=== PATIENT | male | born 2000 | race Caucasian/White ===

== ENCOUNTER 2023-12-18 02:02 | Observation (INO) | payer OTHER ==
[~2023-12-18] VITALS: Ht 205.7 cm; Wt 159.2 kg
[2023-12-18] MEDS ORDERED: ISOVUE-370 76% 100ML VIAL As Ordered ONE (02:15)
[2023-12-18 02:27] LABS: VENOUS BASE EXCESS -1.5 (-2.0-2.0); VENOUS HCO3 24.1 MMOL/L (23.0-27.0); VENOUS O2 SATURATION 62.8 % (60.0-80.0); VENOUS PARTIAL PRESSURE CO2 43.6 mmHg (38.0-50.0); VENOUS PARTIAL PRESSURE O2 32.1 mmHg (30.0-50.0); VENOUS STANDARD HCO3 22.3 MMOL/L; VENOUS TOTAL CO2 25.4 MMOL/L (24.0-28.0)
[2023-12-18 02:31] LABS: BASO % 0.4 % (0.0-1.0); EOS # 0.1 10^3/uL (0.0-0.5); EOS % 0.9 % (0.0-3.0); LYMPH % 29.3 % (24.0-44.0); MEAN CORPUSCULAR HEMOGLOBIN 29.8 pg (27.0-33.0); MEAN CORPUSCULAR VOLUME 87.5 fl (80.0-96.0); MONO # 0.6 10^3/uL (0.0-0.8); MONO % 5.5 % (2.0-8.0); NEUTROPHILS # 6.5 10^3/uL (1.5-8.5); NEUTROPHILS % 63.1 % (36.0-66.0); PLATELET COUNT, AUTOMATED 273 10^3/uL (150-450); RED BLOOD COUNT 5.37 10^6/uL (4.30-6.10); WHITE BLOOD COUNT 10.3 10^3/uL (4.0-10.0)
[2023-12-18] MEDS: fentaNYL 100 MCG/2 ML INJECTION IV ONE (02:37)
[2023-12-18] MEDS: ONDANSETRON 4MG 2ML VIAL IV ONE (02:37)
[2023-12-18] MEDS: NS 1,000 ML IV ONE (02:40)
[2023-12-18 02:45] LABS: INR 0.97; PROTHROMBIN TIME 12.6 SECONDS (12.5-14.5)
[2023-12-18 02:56] LABS: ETHYL ALCOHOL (ETHANOL) < 0.003 % (0.000-0.010); LIPASE 35 U/L (12-53)
[2023-12-18 02:57] LABS: AMYLASE 176 U/L (30-118)
[2023-12-18 02:58] LABS: ALBUMIN 3.7 G/DL (3.2-5.2); ALKALINE PHOSPHATASE 76 U/L (46-116); ALT/SGPT 130 U/L (7.0-40); AST/SGOT 92 U/L (<34); BILIRUBIN,DIRECT 0.2 MG/DL (<0.4); BILIRUBIN,TOTAL 0.5 MG/DL (0.3-1.2); BLOOD UREA NITROGEN 15 MG/DL (9-23); CALCIUM LEVEL 8.7 MG/DL (8.5-10.1); CARBON DIOXIDE LEVEL 25 MMOL/L (20-31); CHLORIDE LEVEL 104 MMOL/L (98-107); CK-MB VALUE MASS 2.8 NG/ML (<3.6); CPK CREATINE PHOSPHOKINASE 482 U/L (46-171); CREATININE FOR GFR 1.08 MG/DL (0.70-1.30); GLOMERULAR FILTRATION RATE > 60.0 (>60); GLUCOSE, FASTING 109 MG/DL (60-100); MB/CK RELATIVE INDEX 0.58 (< OR =4); POTASSIUM SERUM 3.4 MMOL/L (3.5-5.1); SODIUM LEVEL 139 MMOL/L (136-145); TOTAL PROTEIN 7.3 G/DL (5.7-8.2)
[2023-12-18] MEDS ORDERED: ACETAMINOPHEN TAB 650MG DOSE (2X325MG) PO PRN (04:30)
[2023-12-18] MEDS ORDERED: PERCOCET 5MG/325MG TAB PO PRN (04:35)
[2023-12-18] MEDS ORDERED: HOME MED LIST COMPLETE! XX SCH (04:40)
[2023-12-18] MEDS: POTASSIUM CHLORIDE 10MEQ SR TABLET PO ONE (05:18)
[2023-12-18] MEDS: NS 1,000 ML IV SCH ×2 (05:18→14:47)
[2023-12-18 06:17] LABS: HEMATOCRIT 43.4 % (42.0-52.0); HEMOGLOBIN 14.8 g/dl (13.5-17.5); MEAN CORPUSCULAR HEMOGLOBIN 30.3 pg (27.0-33.0); MEAN CORPUSCULAR HGB CONC 34.1 g/dl (32.0-36.5); MEAN CORPUSCULAR VOLUME 88.9 fl (80.0-96.0); PLATELET COUNT, AUTOMATED 229 10^3/uL (150-450); RED BLOOD COUNT 4.88 10^6/uL (4.30-6.10); WHITE BLOOD COUNT 11.8 10^3/uL (4.0-10.0)
[2023-12-18 08:46] LABS: CK-MB VALUE MASS 2.8 NG/ML (<3.6)
[2023-12-18 08:47] LABS: MB/CK RELATIVE INDEX 0.5 (< OR =4)
[2023-12-18 10:35] LABS: HEMATOCRIT 44.9 % (42.0-52.0); HEMOGLOBIN 15.1 g/dl (13.5-17.5); MEAN CORPUSCULAR HEMOGLOBIN 29.8 pg (27.0-33.0); MEAN CORPUSCULAR HGB CONC 33.6 g/dl (32.0-36.5); MEAN CORPUSCULAR VOLUME 88.6 fl (80.0-96.0); PLATELET COUNT, AUTOMATED 236 10^3/uL (150-450); RED BLOOD COUNT 5.07 10^6/uL (4.30-6.10); WHITE BLOOD COUNT 9.8 10^3/uL (4.0-10.0)
[2023-12-18 11:05] LABS: CPK CREATINE PHOSPHOKINASE 592 U/L (46-171)
[2023-12-18 11:11] LABS: ALBUMIN 3.7 G/DL (3.2-5.2); ALKALINE PHOSPHATASE 65 U/L (46-116); ALT/SGPT 115 U/L (7.0-40); AST/SGOT 74 U/L (<34); BLOOD UREA NITROGEN 12 MG/DL (9-23); CALCIUM LEVEL 8.4 MG/DL (8.5-10.1); CARBON DIOXIDE LEVEL 24 MMOL/L (20-31); CHLORIDE LEVEL 110 MMOL/L (98-107); CREATININE FOR GFR 0.86 MG/DL (0.70-1.30); GLOMERULAR FILTRATION RATE > 60.0 (>60); GLUCOSE, FASTING 98 MG/DL (60-100); MAGNESIUM LEVEL 2.1 MG/DL (1.8-2.4); POTASSIUM SERUM 4.5 MMOL/L (3.5-5.1); SODIUM LEVEL 138 MMOL/L (136-145); TOTAL PROTEIN 6.8 G/DL (5.7-8.2)
[2023-12-18 14:30] VITALS: BP 127/79; TEMP 98.6; O2SAT 94
[2023-12-18] MEDS ORDERED: ACET1TAB55 PO (15:07)
[2023-12-18] MEDS ORDERED: PERCOCET PO (15:07)
== END 2023-12-18 16:20 | disposition home or self-care (01) ==
LOC: M ED 02:02 → EDBD 02:02 → M ED INP 02:03 → M MSPAV 14:34
PROVIDERS: ADMIT Preventive Medicine Undersea and Hyperbaric Medicine; ATTEND Internal Medicine
DX: S27.329A Contusion of lung, unspecified, initial encounter (principal); S40.012A Contusion of left shoulder, initial encounter; S06.0X9A Concussion with loss of consciousness of unspecified duration, initial encounter; V49.40XA Driver injured in collision with unspecified motor vehicles in traffic accident, initial encounter; Y92.410 Unspecified street and highway as the place of occurrence of the external cause
CPT/HCPCS: 36415; 70450; 71045; 71046; 71260; 72125; 73030; 74177; 80048; 80053; 80076; 82077; 82150; 82550; 82553; 82803; 83605; 83690; 83735; 84484; 85025; 85027; 85610; 85730; 86850; 86900; 86901; 93005; 93041; 94760; 96361; 96374; 96375; 99285; J2405; J3010; Q9967

== ENCOUNTER 2024-01-29 18:52 | Emergency (ER) | payer OTHER ==
[~2024-01-29] VITALS: Ht 205.7 cm; Wt 152.1 kg
[~2024-01-29 18:52] MED LIST: ACET1TAB55 PO; PERCOCET PO
[2024-01-29 19:47] LABS: BASO % 0.4 % (0.0-1.0); EOS # 0.1 10^3/uL (0.0-0.5); HEMATOCRIT 44.7 % (42.0-52.0); HEMOGLOBIN 15.6 g/dl (13.5-17.5); LYMPH # 1.8 10^3/uL (1.5-5.0); LYMPH % 22.3 % (24.0-44.0); MEAN CORPUSCULAR HEMOGLOBIN 30.2 pg (27.0-33.0); MEAN CORPUSCULAR HGB CONC 34.9 g/dl (32.0-36.5); MEAN CORPUSCULAR VOLUME 86.6 fl (80.0-96.0); MONO # 0.4 10^3/uL (0.0-0.8); MONO % 4.4 % (2.0-8.0); NEUTROPHILS # 5.7 10^3/uL (1.5-8.5); NEUTROPHILS % 71.5 % (36.0-66.0); PLATELET COUNT, AUTOMATED 229 10^3/uL (150-450); RED BLOOD COUNT 5.16 10^6/uL (4.30-6.10)
[2024-01-29 20:04] LABS: ALBUMIN 3.7 G/DL (3.2-5.2); ALKALINE PHOSPHATASE 75 U/L (46-116); ALT/SGPT 102 U/L (7.0-40); AST/SGOT 49 U/L (<34); BILIRUBIN,DIRECT 0.2 MG/DL (<0.4); BILIRUBIN,TOTAL 0.5 MG/DL (0.3-1.2); BLOOD UREA NITROGEN 9 MG/DL (9-23); CALCIUM LEVEL 8.5 MG/DL (8.5-10.1); CARBON DIOXIDE LEVEL 23 MMOL/L (20-31); CHLORIDE LEVEL 108 MMOL/L (98-107); CREATININE FOR GFR 0.81 MG/DL (0.70-1.30); GLOMERULAR FILTRATION RATE > 60.0 (>60); GLUCOSE, FASTING 94 MG/DL (60-100); MAGNESIUM LEVEL 2.1 MG/DL (1.8-2.4); PHOSPHORUS LEVEL 2.8 MG/DL (2.5-4.9); POTASSIUM SERUM 4.2 MMOL/L (3.5-5.1); SODIUM LEVEL 139 MMOL/L (136-145); TOTAL PROTEIN 6.9 G/DL (5.7-8.2)
[2024-01-29 20:32] LABS: ETHYL ALCOHOL (ETHANOL) 0.004 % (0.000-0.010)
[2024-01-29 20:42] LABS: PROCALCITONIN <0.04 ng/ml
[2024-01-29] MEDS: NS 1,000 ML IV ONE (21:10)
[2024-01-29 23:03] LABS: APPEARANCE, URINE HAZY (CLEAR); BACTERIA, URINE AUTO NEGATIVE (NEGATIVE); BILIRUBIN, URINE AUTO NEGATIVE (NEGATIVE); BLOOD, URINE BLOOD 1+ (NEGATIVE); COLOR, URINE YELLOW (YELLOW); GLUCOSE, URINE (UA) AUTO NEGATIVE (NEGATIVE); KETONE, URINE AUTO NEGATIVE (NEGATIVE); LEUKOCYTE ESTERASE, URINE AUTO NEGATIVE (NEGATIVE); NITRITE, URINE AUTO NEGATIVE (NEGATIVE); PROTEIN, URINE AUTO 2+ mg/dL (NEGATIVE); RBC, URINE AUTO 0 /HPF (0-3); SPECIFIC GRAVITY URINE AUTO 1.019 (1.002-1.035); SQUAMOUS EPITHELIAL CELL UR AU 0 /HPF (0-6); UROBILINOGEN, URINE AUTO 0.2 mg/dL (0.0-2.0); WBC, URINE AUTO 2 /HPF (0-3)
[2024-01-29 23:20] LABS: AMPHETAMINES LEVEL URINE NEGATIVE (NEGATIVE); BENZODIAZEPINES URINE NEGATIVE (NEGATIVE)
[2024-01-29 23:21] LABS: BARBITURATES URINE NEGATIVE (NEGATIVE); CANNABINOIDS URINE NEGATIVE (NEGATIVE); COCAINE METABOLITE URINE NEGATIVE (NEGATIVE); METHADONE URINE NEGATIVE (NEGATIVE); OPIATES URINE NEGATIVE (NEGATIVE); PHENCYCLIDINE URINE NEGATIVE (NEGATIVE)
[2024-01-29] MEDS ORDERED: DEPA500T2 PO (23:28)
[2024-01-29] MEDS: VALPROATE SOD INJ 1,000 MG in D5W 50 ML IV ONE (23:32)
[2024-01-30] VITALS: BP 142/75; TEMP 98.9; O2SAT 97
== END 2024-01-30 00:15 | disposition home or self-care (01) ==
LOC: M ED 18:52
DX: G40.89 Other seizures (principal); I45.10 Unspecified right bundle-branch block; R00.0 Tachycardia, unspecified; F17.290 Nicotine dependence, other tobacco product, uncomplicated; F10.10 Alcohol abuse, uncomplicated; Z79.1 Long term (current) use of non-steroidal anti-inflammatories (NSAID); Z79.899 Other long term (current) drug therapy